=== PATIENT | female | born 1985 ===

== ENCOUNTER 2025-11-04 16:34 | Outpatient (REF) | payer MEDICAID, SELFPAY ==
[2025-11-09 11:54] LABS: Chlamydia Result Negative (Negative); GC Result Negative (Negative)
== END 2025-11-04 16:35 | disposition home or self-care (01) ==
LOC: LBN 16:34
PROVIDERS: Visit Provider Nurse Practitioner Obstetrics & Gynecology
DX: Z34.91 Encounter for supervision of normal pregnancy, unspecified, first trimester (principal)
CPT/HCPCS: 87491; 87591; 87086